=== PATIENT | male | born 1950 | race Caucasian/White ===

== ENCOUNTER 2020-10-17 15:00 | Inpatient (IN) | payer MEDICARE, OTHER, SELFPAY ==
[2020-10-17] VITALS (10 sets, daily range): BP systolic 140–159; BP diastolic 62–84; PULSE 67–83; RESP 15–20; TEMP 36.6–37.2; O2SAT 93–97; BMI 33.1; BMI 33.3; BMI 33.4
--- NOTE | 2020-10-17 15:20 | CT_ITS ---
We are attempting to reach an attending provider to discuss findings. An addendum with communication details will be sent when the communication is complete. STUDY: CT HEAD STROKE PROTOCOL W/O CONTRAST INJECTION REASON FOR EXAM: Male, 69 years old. SUDDEN ONSET OF RT HAND/ARM N/T RADIATION DOSAGE (If Supplied By Facility): CTDIvol = ( ) mGy, DLP = ( ) mGycm TECHNIQUE: Transaxial CT imaging of the brain was performed without administration of intravenous contrast material. Individualized dose optimization techniques were used for this CT. COMPARISON: No relevant priors. FINDINGS: Normal soft tissue structures. Normal calvarium. There is mild cerebral atrophy with widening of the extra-axial spaces and ventricular dilatation. There are areas of decreased attenuation within the white matter tracts of the supratentorial brain, consistent with microvascular disease changes. Normal basal ganglia and thalami. Normal brainstem. Normal cerebellum. There is no intracranial hemorrhage. There are no findings of an acute ischemic infarction. There is a right dense MCA sign (image 21 series 2, image 41 series 601). Normal visualized paranasal sinuses. CT/STROKE Brain/Head without Cont IMPRESSION: 1. No acute intracranial hemorrhage or mass effect. Right dense MCA sign. CTA recommended. Electronically Signed: John Saez MD (Brooks) at 16:11 EST , Service support ,
--- NOTE | 2020-10-17 15:20 | EKG12_ITS ---
Test Reason : NEURO Blood Pressure : / mmHG Vent. Rate : 069 BPM Atrial Rate : 069 BPM P-R Int : 146 ms QRS Dur : 092 ms QT Int : 398 ms P-R-T Axes : 036 016 026 degrees QTc Int : 426 ms Normal sinus rhythm Normal ECG Confirmed by USMAN BALDERAS, JEFF ([id number]), publications editor LANDON SOLIZ ([id number]) on 10/19/2020 8:54:48 AM Referred By: Winnie Vilchis Confirmed By:JEFF MARY MD
--- NOTE | 2020-10-17 15:38 | RAD_ITS ---
STUDY: X-RAY CHEST REASON FOR EXAM: Male, 69 years old. PT DRIVING FROM [place] TO [place] AND WAS ON THE WAY BACK HOME WHEN HE HAD SUDDEN R HAND/ARM NUMBNESS NUMB FACE AND DIFFICULTY SPEAKING. PT ALSO LOST STRENGTH IN R HAND. NO SYMPTOMS NOW TECHNIQUE: AP COMPARISON: None. FINDINGS: EKG leads project over the chest. The lungs are clear and expanded. There is no demonstrated pleural abnormality. Normal size heart. Normal mediastinum and shawnee. Normal visualized pulmonary arteries. There is atherosclerotic calcification of the aortic arch with tortuosity. Normal visualized thoracic spine. Operative changes of the right humeral head. There is no demonstrated abnormality of the visualized soft tissue structures of the upper abdomen. RAD/Chest 1 View IMPRESSION: Nonacute portable x-ray examination of the chest. Electronically Signed: John Saez MD (Brooks) at 15:56 EST , Service support ,
--- NOTE | 2020-10-17 16:32 | CT_ITS ---
STUDY: CTA HEAD AND NECK WITH CONTRAST REASON FOR EXAM: Male, 69 years old. CVA, SUDDEN ONSET OF RT HAND/ARM N/T, NUMB FACE, DIFF SPEAKING, LOST STRENGTH IN RT HAND WHILE DRIVINGSTRENGTH IN RT HAND WHILE DRIVING RADIATION DOSAGE (If Supplied By Facility): CTDIvol = ( 24.28 ) mGy, DLP = ( 730.92 ) mGycm TECHNIQUE: CT angiography was performed with a multi-detector CT scanner. Data acquisition was obtained from the skull base through the vertex following intravenous administration of IV 100mL Isovue-370. MIP images were reconstructed from the axial data set. Post-processing of the angiographic images was performed, with multiplanar reformation and 3D reconstruction. Individualized dose optimization techniques were used for this CT. COMPARISON: No relevant priors. FINDINGS: Normal bilateral petrous carotid arteries. There is calcified plaque formation of the right cavernous carotid artery, without a cross-sectional luminal stenosis. There is calcified plaque formation of the left cavernous carotid artery, without a cross-sectional luminal stenosis. Normal right A1 segments of the anterior cerebral artery. There is non-visualization of the left A1 segment of the anterior cerebral arteries consistent with either aplastic development or an occlusion. Normal intact anterior communicating artery (ACOM). Normal bilateral A2 segments of the anterior cerebral arteries. There is irregularity of the right M1 and M2 branches with mild luminal narrowing, suggesting atherosclerotic plaque formation, without an acute occlusion. Normal left M1 and M2 segments of the middle cerebral arteries, with a normal M1 bifurcation. There is non-visualization of the right posterior communicating artery (PCOM). 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 There is atherosclerosis with narrowing of the left vertebral artery (image 163 series 2). There is a small atretic basilar artery, suggesting a basilar insufficiency. The visualized bilateral superior cerebellar (SCA) arteries are normal. Normal bilateral P1, P2 and visualized P3 segments of the posterior cerebral arteries. There is no demonstrated aneurysm of the wrangell of [place]. There is no demonstrated abnormality of the visualized brain. AORTIC ARCH: There is atherosclerotic calcific plaque formation of the aortic arch and great vessels arising from the aortic arch, without a hemodynamically significant stenosis. RIGHT CAROTID ARTERIES: There is atherosclerotic tortuous elongation of the right common carotid artery. There is mild atherosclerotic plaque formation with minimal narrowing of the right carotid bulb. There is mild atherosclerotic plaque formation of the origin of the right internal carotid artery with 30% stenosis. There is atherosclerotic tortuous elongation of the cervical portion of the right internal carotid artery. There is mild atherosclerotic plaque formation of the origin of the right external carotid artery with less than 50% cross sectional diameter stenosis. LEFT CAROTID ARTERIES: There is atherosclerotic tortuous elongation of the left common carotid artery. There is mild atherosclerotic plaque formation with minimal narrowing of the left carotid bulb. There is mild atherosclerotic plaque formation of the origin of the left internal carotid artery with less than 40% stenosis. There is atherosclerotic tortuous elongation of the cervical portion of the left internal carotid artery. There is mild atherosclerotic plaque formation of the origin of the left external carotid artery with less than 50% cross sectional diameter stenosis. VERTEBRAL ARTERIES: There is enhancement within the bilateral vertebral arteries with a small right vertebral artery, and a dominant left vertebral artery. CT/STROKE CTA Head AND Neck W/Con IMPRESSION: 1. No acute arterial occlusion or intracranial aneurysm. 2. Atherosclerosis of the right M1/M2 without narrowing. 3. Bilateral carotid atherosclerosis: No hemodynamically significant stenosis. 4. No arterial dissection. N.B. : The above information has been verbally conveyed by John Saez MD (Brooks) to Isabela Russell MD, on 10/17/2020 17:27:53 (ET). Electronically Signed: John Saze MD (Brooks) at 17:34 EST , Service support ,
[2020-10-17 16:38] LABS: Absolute Lymphocyte Count 0.82 X10^3/uL (0.83-4.51); Absolute Neutrophil Count 4.2 X10^3/uL (2.0-7.7); Basophil# 0.02 X10^3/uL; Basophil% 0.3 % (0-1); Eosinophil# 0.22 X10^3/uL; Eosinophils% 3.7 % (0-5); Hematocrit 44.4 % (40-54); Hemoglobin 14.9 g/dL (13.0-16.5); Lymphocyte # 0.82 X10^3/ul (4.0); Lymphocyte % 13.8 % (19-41); Mean Corp Hgb Conc 33.6 g/dL (32-36); Mean Corpuscular Hgb 29.7 pg (27.0-32.0); Mean Corpuscular Volume 88.6 fL (80-94); Mean Platelet Vol. 9.9 fl (6.2-12.0); Monocyte# 0.64 X10^3/uL; Monocyte% 10.7 % (0-10); NRBC Flagged by Analyzer 0 % (0-5); Neutrophil # 4.24 X10^3/uL (2.7-7.7); Neutrophil % 71.2 % (47-70); Platelet Count 183 K/mm3 (150-450); RBC Distribution Width CV 12.8 % (11.6-14.6); RBC Distribution Width SD 41.6 fl (35.1-43.9); Red Blood Count 5.01 M/mm3 (4.6-6.2)
[2020-10-17 16:46] LABS: International Normalized Ratio 1.1; Prothrombin Time (Protime)PT. 13.2 SECONDS (11.7-14.9)
[2020-10-17 16:47] LABS: Partial Thromboplast Time 27.8 Seconds (24.1-36.2)
[2020-10-17 16:54] LABS: Anion Gap 7 (5-15); BUN 23 mg/dL (7-18); BUN/Creat Ratio 15.9 RATIO (10-20); Calcium,Total 8.9 mg/dL (8.5-10.1); Chloride 108 mmol/L (98-107); Creatinine, Serum 1.45 mg/dL (0.70-1.30); EST Glomerular Filtration Rate 51 mL/min (>60); Est Glom Filt Rate - Afr Amer 62 mL/min (>60); Estimated Creatinine Clearance 50.49 ml/min; Glucose 93 mg/dL (74-106); Potassium 4.3 mmol/L (3.5-5.1); Sodium Level 141 mmol/L (136-145)
--- NOTE | 2020-10-17 17:17 | ED.VISSUMM ---
- ER Visit Summary Date of Service: 10/17/20 Chief Complaint: Right arm weakness and numbness History of Present Illness: The patient is a 69 M presenting with right arm weakness and numbness. Patient states he was driving and started having weakness and numbness in his right arm. He had numbness in his right face as well. He started having difficulty speaking. This started 40 minutes prior to arrival. He states 10 minutes ago his symptoms completely resolved. Symptoms lasting approximately 30 minutes. No history of similar symptoms in the past. Physical Examination: Vitals are stable. Patient is afebrile. Alert no acute distress. HEENT exam is unremarkable. Neck is supple. Lungs are clear and equal bilaterally. Heart is regular rate and rhythm. Abdomen is soft nontender nondistended. Extremities are unremarkable. Skin is warm and dry. No focal neurologic deficit. NIH 0 Remainder of exam is unremarkable. Emergency Department Course and Treatment: EKG is sinus rhythm rate of 69 with no acute ischemic changes. CBC, chemistries unremarkable other than BUN 23, creatinine 1.45. Troponin is negative. Chest x-ray read by myself and radiology shows no acute process. CT head shows no acute intracranial hemorrhage or mass effect. Right dense MCA sign. CTA recommended. Patient continues to have an NIH of 0. Discussed with [facility] neurology. CTA head shows No acute arterial occlusion or intracranial aneurysm. Atherosclerosis of the right M1/M2 without narrowing. Bilateral carotid atherosclerosis: No hemodynamically significant stenosis. No arterial dissection. Will discuss with hospitalist for admission. Disposition: Admission Impression: TIA This note was generated with [employer] dictation software. It may contain incorrect words, spelling, and punctuation that were not noted in review of the chart prior to signing ED Disposition - Plan for ED Patient: Referrals: AFTAB CRUZ [Other]
--- NOTE | 2020-10-17 19:13 | ECHOCS_ITS ---
Reason For Study: TIA/STROKE Procedure This was a 2D Doppler, Color Flow transthoracic echocardiogram. The study was technically difficult. Contrast injection was performed. Exam performed portable in patient room. Left Ventricle Normal LV size. Left ventricular systolic function is normal. The estimated ejection fraction is 55 %. Stage 1 diastolic dysfunction. No regional wall motion abnormalities noted. Right Ventricle Normal RV size. Normal systolic function. Atria Normal left atrium. Normal right atrium. Mitral Valve Normal mitral valve. Tricuspid Valve Normal tricuspid valve. Aortic Valve The aortic valve is not well visualized. Mild (1+) eccentric aortic valve insufficiency. Pulmonic Valve Normal pulmonic valve. Great Vessels Normal aortic root. The pulmonary artery is normal size. Normal inferior vena cava. Pericardium/Pleural No pericardial effusion. Medication Performed a rapid injection of agitated mix of 9 cc saline and 1cc air to assess for atrial septal defect. Diluted definity 5.0ml given slow IV push to enhance endocardial definition. *Non-diagnostic bubble due to poor image quality. MMode/2D Measurements & Calculations LVIDd: 4.7 cm IVSd: 1.1 cm LVOT diam: 2.0 cm LVIDs: 3.4 cm LVPWd: 1.0 cm RVDd: 3.3 cm FS: 26.9 % LVOT area: 3.3 cm2 Ao root diam: 3.9 cm LAV(MOD-bp): 42.5 ml LA A4 area: 13.9 cm2 LAV(MOD-bp) Indexed: 18.7 ml/m2 LAV(MOD-sp2): 53.9 ml LAV(MOD-sp4): 30.8 ml LA dimension(2D): 4.1 cm RA A4 area: 10.7 cm2 Time Measurements MV dec time: 0.54 sec Doppler Measurements & Calculations MV E max thom: 70.7 cm/sec Lat Peak E' Thom: 8.0 cm/sec Med Peak E' Thom: 4.2 cm/sec MV A max thom: 138.9 cm/sec E/E' lat: 8.8 E/E' med: 16.8 MV E/A: 0.51 MV V2 max: 138.0 cm/sec Ao V2 max: 189.9 cm/sec AI max thom: 467.1 cm/sec MV max P.6 mmHg Ao max P.5 mmHg AI max P.3 mmHg MV V2 mean: 74.8 cm/sec Ao V2 mean: 136.1 cm/sec AI dec slope: 369.9 cm/sec2 MV mean P.6 mmHg Ao mean P.2 mmHg AI P1/2t: 369.8 msec MV V2 VTI: 32.8 cm Ao V2 VTI: 33.3 cm MVA(VTI): 2.2 cm2 SUBHASH(I,D): 2.1 cm2 SUBHASH(V,D): 2.0 cm2 LV V1 max: 113.4 cm/sec SV(LVOT): 70.9 ml PA V2 max: 87.5 cm/sec LV V1 max P.2 mmHg LV V1 mean P.5 mmHg LV V1 mean: 73.9 cm/sec LV V1 VTI: 21.7 cm MV P1/2t-pr_phl: 111.3 msec Interpretation Summary Normal LV size. Left ventricular systolic function is normal. The estimated ejection fraction is 55 %. Stage 1 diastolic dysfunction. Ordering Physician: Winnie Vilchis Referring Physician: Winnie Vilchis Performed By: Celine Patino RDCS, RVT
--- NOTE | 2020-10-17 19:14 | PCM.HP.STD ---
Problem List (1) TIA (transient ischemic attack) Status: Acute (2) MYRA (acute kidney injury) Status: Acute (3) HTN (hypertension) Status: Chronic (4) Hyperlipidemia Status: Chronic (5) Obesity (BMI 30.0-34.9) Status: Chronic History of Present Illness Date of Admission: 10/17/20 Mr. Melgoza is a 69 year old M with a H MH of hypertension, hyperlipidemia, and obesity presented to the emergency department at [facility] on 10/17/2020 with a chief complaint of right upper extremity weakness and numbness and inability to speak. 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 He states that he understood what she was asking but was unable to answer. This episode lasted approximately 15 minutes and had resolved prior to coming to the emergency department and the patient remains symptom-free at this time. He does state he has a family history of stroke and coronary disease but no personal history. His vital signs in the emergency department show only some mild hypertension and are otherwise stable. His CBC is overall unremarkable. His BMP shows possibly mild dehydration with an elevated chloride at 108, BUN of 23, and a serum creatinine of 1.45. His baseline creatinine is unknown. His troponin is negative. A CT was done on initial exam in the emergency department, and was suggestive of a dense right MCA sign and a CTA was recommended and performed. CTA showed no acute arterial occlusion or intracranial aneurysm it did show atherosclerosis of the right M1 M2 without narrowing and bilateral insignificant carotid atherosclerosis. Emergency department attending discussed the case with [facility] neurology stroke service and they recommended admission for TIA work-up. The patient will be admitted to PCU for further stroke work-up. Past Medical History Past Medical History (Chronic Problems): Chronic Problems HTN (hypertension) (Chronic) Hyperlipidemia (Chronic) Obesity (BMI 30.0-34.9) (Chronic) Allergies No Known Allergies Allergy (Verified 10/17/20 15:04) Home Medications: Ambulatory Orders Medication Instructions Recorded Aspirin [Aspirin, Baby] 81 mg PO DAILY@0800 10/17/20 Cholecalciferol (VIT D3) [Vitamin 1,000 unit PO DAILY 10/17/20 D] Cyanocobalamin (Vitamin B-12) 1,000 mcg PO DAILY 10/17/20 [Vitamin B-12] Ezetimibe [Zetia] 10 mg PO WE 10/17/20 Losartan Potassium [Cozaar] 100 mg PO DAILY 10/17/20 Metoprolol(XL)Succ [Toprol Xl 100 mg PO DAILY 10/17/20 (Beta Javid)] Rosuvastatin Calcium [Crestor] 5 mg PO QODAY 10/17/20 Surgical History: noncontributory Psychiatric History: No pertinent psych hx Lives: Spouse/ Significant Other Smoking Status: Former smoker Alcohol: Rare Drugs: None - *Family History Maternal History Items: Heart Disease, Hypertension Paternal History Items: Heart Disease Offspring History Items: No pertinent history Sibling History Items: High Cholesterol, Heart Disease, Hypertension, Stroke Review of Systems Constitutional: Denies: Anorexia, Chills, Fever, Night Sweats, Malaise, Weakness, Weight Change, Fatigue Eyes: Denies: Blurred vision, Conjunctivae Inflammation, Double vision, Drainage, Eyelid Inflammation, Pain, Redness, Vision Change HEENT: Reports: Difficulty Hearing. Denies: Difficulty Swallowing, Head Aches, Nasal bleeding, Nasal Congestion, Post Nasal Drip, Sinus Congestion, Sinus Drainage, Sore Throat, Visual Changes Cardiovascular: Denies: Chest Pain, Claudication, Chest Pressure, Chest Tightness, Edema, Heaviness, Light Headedness, Orthopnea, Palpitations, Paroxysmal Noc. Dyspnea, Syncope Respiratory: Denies: Cough, Hemoptysis, Pleuritic Pain, Shortness of Breath, Shortness of breath at rest, Shortness of breath upon exertion, Sputum production, Wheezing Gastrointestinal: Denies: Abdominal Pain, Constipation, Diarrhea, Dyspepsia, Hematemesis, Hematochezia, Nausea, Melena, Vomiting Genitourinary: Reports: Hesitancy, Nocturia. Denies: Dysuria, Frequency, Hematuria, Incontinence, Retention, Urgency Musculoskeletal: Denies: Back Pain, Joint Pain, Joint stiffness, Joint swelling, Joint Tenderness, Muscle pain, Neck Pain Skin: Denies: Dryness, Jaundice, Lesions, Pruritis, Rash, Skin Changes, Wounds Neurological: Reports: Change in Speech - Now resolved, Slurred speech - Now resolved, Focal weakness - Now resolved, Numbness - Now resolved, Tingling - Now resolved. Denies: Balance problems, Double vision, Confusion, Difficulty swallowing, Headaches, Incoordination, Tremor, Seizures Psychiatric: Denies: Anxiety, Depression Endocrine: Denies: Change in Body Habitus, Heat/ Cold Intolerance, Polydipsia, Polyuria Hematologic/ Lymphatic: Denies: Adenopathy, Anemia, Easy Bruising, Easy Bleeding, Petechiae, Purpura VTE Information - Inpt Only VTE Present on Admission: No VTE Mechan Device Prophylaxis: None VTE Pharm Prophylaxis ordered?: Yes - Physical Exam Vitals/I&O's: Vital Signs Temp Pulse Resp BP Pulse Ox 97.9 F 67 18 147/80 H 97 10/17/20 18:58 10/17/20 18:58 10/17/20 18:58 10/17/20 18:58 10/17/20 18:58 Oxygen Delivery Method Room Air Weight: 108.5 kg Body Mass Index (BMI) 33.3 Finger Stick Blood Glucose 120 General: Alert, Oriented x3, Cooperative, No apparent distress, Well developed, Well nourished, - - Older obese white male, sitting up in bed appears comfortable nontoxic, at bedside HEENT: Atraumatic, PERRLA, EOMI, Normocephalic, EAC Clear, - - She is hard of hearing Oral: Moist Mucosa, No Gingival or Mucosal Lesions/ Ulcerations Neck: Supple, No JVD, Negative Carotid Bruits, Negative Hepatojugular Reflux, No Nodes, No Nuchal Rigidity, Trachea Midline, Thyroid Normal Size and Texture Lungs: Clear to auscultation, Normal air movement, No rhonchi, No wheeze, No rales Cardiovascular: Regular rate, Regular Rhythm, Normal S1, Normal S2, No murmurs, No Ectopic Activity, No rub noted, No Gallop Abdomen: Bowel Sounds Present, Soft, Non Tender, Non-Distended, No Hepato-splenomegaly, Obese Extremities: No clubbing, No cyanosis, No edema, Capillary Refill Less than 3 Seconds, Peripheral Pulses Normal Skin: No rashes, No breakdown Musculoskeletal: No Tenderness to Palpation of Joints or Extremities, No Muscle Wasting, Arthritic Changes Lymphatic: No Cervical, Supraclavicular, or Inguinal Adenopathy Neurological: Cranial nerves II-XII grossly intact, Deep Tendon Reflexes 2+/4 and Symmetrical, Neuro grossly intact, Motor Exam 5/5 strength throughout, Muscle tone normal, Sensory exam intact to light touch and pain, Coordination normal Microbiology Past 72 Hours 10/17/20 16:24 Mucosa - Nose SARS-CoV-2 Antigen (Rapid) - Final Laboratory Results 10/17/20 16:16: WBC 6.0, RBC 5.01, Hgb 14.9, Hct 44.4, MCV 88.6, MCH 29.7, MCHC 33.6, RDW Std Deviation 41.6, RDW Coeff of Manny 12.8, Plt Count 183, MPV 9.9, Immature Gran % (Auto) 0.300, Neut % (Auto) 71.2 H, Lymph % (Auto) 13.8 L, [place] % (Auto) 10.7 H, Eos % (Auto) 3.7, Baso % (Auto) 0.3, Absolute Neuts (auto) 4.2, Absolute Lymphs (auto) 0.82 L, Nucleated RBC % 0 10/17/20 16:16: PT 13.2, INR 1.1, APTT 27.8 10/17/20 16:16: Sodium 141, Potassium 4.3, Chloride 108 H, Carbon Dioxide 26.0, Anion Gap 7, BUN 23 H, Creatinine 1.45 H, Estim Creat Clear Calc 50.49, Est GFR (MDRD) Af Amer 62, Est GFR (MDRD) Non-Af 51 L, BUN/Creatinine Ratio 15.9, Glucose 93, Calcium 8.9, Troponin I < 0.015 Assessment/Plan All Active Problems TIA (transient ischemic attack) (Acute) MYRA (acute kidney injury) (Acute) Suspected TIA -CT head showed no acute hemorrhage but a dense right MCA sign so CTA was performed -CTA showed no acute arterial occlusions or intracranial aneurysms, atherosclerosis of the right M1 M2 without narrowing, bilateral carotid atherosclerosis without hemodynamic significant stenosis, and no dissection -Patient is on aspirin at baseline we will continue -Continue home Zetia -Lipitor 80 mg daily -Continue home blood pressure medication of losartan and metoprolol -Cholesterol panel in a.m. -Check echo -MRI in a.m. -PT and OT -Monitor on telemetry ?MYRA versus CKD -Serum creatinine is 1.45 on admission -Creatinine is unknown -We will hydrate since CTA was performed -Repeat BMP in a.m. Hypertension -Continue home metoprolol 100 mg daily -Continue home losartan 100 mg daily -PRN available -Monitor Hyperlipidemia -Lipitor 80 mg nightly -Continue home Zetia -Cholesterol panel in a.m. Vitamin D deficiency -Continue home vitamin D supplementation Obesity -BMI 33.4 -Recommend weight loss Remote history of tobacco abuse -Quit smoking in the early DVT prophylaxis -Lovenox CODE STATUS -Full Inpatient E&M: 61872 Init Hosp L3
--- NOTE | 2020-10-17 19:32 | EKG12_ITS ---
Test Reason : CP Blood Pressure : / mmHG Vent. Rate : 062 BPM Atrial Rate : 062 BPM P-R Int : 150 ms QRS Dur : 094 ms QT Int : 394 ms P-R-T Axes : 039 012 027 degrees QTc Int : 399 ms Normal sinus rhythm Normal ECG No previous ECGs available Confirmed by USMAN BALDERAS, JEFF ([id number]), editor at large LANDON SOLIZ ([id number]) on 10/19/2020 9:08:18 AM Referred By: Winnie Vilchis Confirmed By:JEFF MARY MD
[2020-10-17] MEDS: 0.9% Normal Saline 1,000 ML 70 ML IV (19:43)
[2020-10-17] MEDS: Atorvastatin Calcium 80 MG Tablet PO (21:23)
[2020-10-17] MEDS: Famotidine 20 MG Tablet PO (21:23)
[2020-10-18] VITALS (13 sets, daily range): BP systolic 122–163; BP diastolic 70–86; PULSE 74–93; RESP 16–79; TEMP 36.6–37.5; O2SAT 92–96
[2020-10-18 05:34] LABS: Absolute Lymphocyte Count 0.66 X10^3/uL (0.83-4.51); Absolute Neutrophil Count 3.3 X10^3/uL (2.0-7.7); Basophil# 0.02 X10^3/uL; Basophil% 0.4 % (0-1); Eosinophil# 0.16 X10^3/uL; Eosinophils% 3.4 % (0-5); Hematocrit 40.5 % (40-54); Hemoglobin 13.5 g/dL (13.0-16.5); Lymphocyte # 0.66 X10^3/ul (4.0); Lymphocyte % 14.1 % (19-41); Mean Corp Hgb Conc 33.3 g/dL (32-36); Mean Corpuscular Hgb 29.7 pg (27.0-32.0); Mean Platelet Vol. 9.8 fl (6.2-12.0); Monocyte# 0.57 X10^3/uL; Monocyte% 12.2 % (0-10); NRBC Flagged by Analyzer 0 % (0-5); Neutrophil # 3.26 X10^3/uL (2.7-7.7); Neutrophil % 69.7 % (47-70); Platelet Count 153 K/mm3 (150-450); RBC Distribution Width CV 12.8 % (11.6-14.6); RBC Distribution Width SD 41.7 fl (35.1-43.9); Red Blood Count 4.55 M/mm3 (4.6-6.2); White Blood Count 4.7 K/mm3 (4.4-11.0)
--- NOTE | 2020-10-18 05:51 | PCS.PANDOC ---
PANDEMIC DOCUMENTATION INITIATED: Date: 10/17/20 Time: 1851
[2020-10-18 05:57] LABS: ALB/GLOB Ratio 1.1 RATIO (0.9-2.4); AST(SGOT) 27 U/L (15-37); Alanine Aminotransfer ALT/SGPT 34 U/L (16-61); Albumin, Serum 3.3 g/dL (3.2-5.0); Alkaline Phosphatase 81 U/L (45-117); Anion Gap 6 (5-15); BUN 20 mg/dL (7-18); BUN/Creat Ratio 15.9 RATIO (10-20); Calcium,Total 8.3 mg/dL (8.5-10.1); Chloride 109 mmol/L (98-107); Cholesterol 130 mg/dL (200); Creatinine, Serum 1.26 mg/dL (0.70-1.30); EST Glomerular Filtration Rate 60 mL/min (>60); Est Glom Filt Rate - Afr Amer 73 mL/min (>60); Globulin 3.1 g/dL (2.2-4.2); Glucose 99 mg/dL (74-106); High Density Lipoprotein 42 mg/dL; Magnesium 2.1 mg/dL (1.6-2.6); Phosphorus 3.3 mg/dL (2.5-4.9); Potassium 4.3 mmol/L (3.5-5.1); Protein, Total 6.4 g/dL (6.4-8.2); Sodium Level 138 mmol/L (136-145); Triglycerides 102 mg/dL; Very Low Density Lipoprotein 20 mg/dL (5-40)
--- NOTE | 2020-10-18 09:00 | MRI_ITS ---
STUDY: MRI BRAIN WITH AND WITHOUT CONTRAST REASON FOR EXAM: Male, 69 years old. RUE weakness, numbness, speech difficulty TECHNIQUE: Standardized multiplanar fat and water weighted pulse sequences were obtained. IV Dotarem 20ml was administered for the contrast portion of the examination. There is motion artifact. COMPARISON: CT October 17, 2020 FINDINGS: Normal size of the ventricles and extra-axial spaces for the patient''s age. There are multiple white matter hyperintensities, distributed throughout the deep white matter tracts of the cerebral hemispheres, consistent with moderate chronic white matter ischemic changes. There is a right parietal gliosis extending to the cortex. There is no evidence for recent intracranial ischemia or other cause of cytotoxic edema on diffusion weighted imaging (DWI). Normal T2* images of the brain without demonstrated susceptibility artifact. There is no demonstrated hemosiderin stain. Normal bilateral basal ganglia. Normal thalami. There is no extra-axial fluid accumulation. Normal flow voids within the major intracranial circulation suggesting patency by spin echo criteria. Normal venous enhancement. There is no enhancing intra-axial or extra-axial abnormality. Normal sella turcica, pituitary gland, infundibular stalk, optic chiasm and hypothalamus. Normal tectal plate and pineal gland. Normal midbrain, emily and medulla. Normal cerebellum. Normal basal cisterns. Normal bilateral temporal bones. Normal bilateral internal auditory canals. There are bilateral ocular lens implants with otherwise normal intraorbital contents. Normal visualized paranasal sinuses. Normal calvarium and skull base. Normal visualized soft tissue structures. Normal visualized upper cervical spine. MRI/Brain W/WO Contrast IMPRESSION: Involutional changes of the brain, as described above. Electronically Signed: Jean Abraham MD at 19:33 EST , Service support ,
[2020-10-18] MEDS: 0.9% Saline Lock 10 ML Syringe IV ×2 (10:27→15:27)
[2020-10-18] MEDS: Aspirin 81 MG TAB.CHEW PO (10:27)
[2020-10-18] MEDS: Metoprolol(XL)Succ 100 MG Tablet PO (10:27)
[2020-10-18] MEDS: Enoxaparin 40 MG/0.4 ML Syringe SC (10:27)
[2020-10-18] MEDS: Losartan Potassium 100 MG Tablet PO (10:27)
[2020-10-18] MEDS: Famotidine 20 MG Tablet PO (11:29)
--- NOTE | 2020-10-18 12:12 | CASEMGMT ---
SW completed PHQ-9 w/pt, pt scored a 0, no indication of depression. VIC Oliver
[2020-10-18] MEDS: LORazepam 2 MG/ML Syringe 1 MG IV (15:26)
--- NOTE | 2020-10-18 16:45 | PCM.PN.HOSP ---
Patient Problems: Active and Suspected Problems TIA (transient ischemic attack) (Acute) MYRA (acute kidney injury) (Acute) Subjective: Patient seen and examined. He was admitted with a complaint of right upper extremity weakness and numbness and inability to speak. Symptoms resolved after about 15 minutes and had not recurred since. CT of the brain done was suggestive of a dense right MCA and CTA showed no acute arterial occlusion on intracranial aneurysm. He has been managed for TIA. Patient had no complaints this morning. His symptoms had not recurred since admission. Review systems otherwise negative. He is awaiting MRI and 2D echo today. Labs and vitals reviewed. Vitals/I&O's: Vital Signs Temp Pulse Resp BP Pulse Ox 98.4 F 80 16 153/75 H 94 10/18/20 14:30 10/18/20 16:18 10/18/20 16:18 10/18/20 16:18 10/18/20 16:18 Oxygen Delivery Method Room Air Weight: 239 lb 3.225 oz Body Mass Index (BMI) 33.3 Finger Stick Blood Glucose 120 Intake and Output for Last 24 Hours 10/16/20 10/17/20 10/18/20 23:59 23:59 23:59 Intake Total 1820 / 1820 Balance 1820 / 1820 General: Alert, Oriented x3, Cooperative, No apparent distress HEENT: Atraumatic, PERRLA, EOMI, Normocephalic Oral: Dry Mucosa Neck: Supple, No JVD, Negative Carotid Bruits Lungs: Clear to auscultation, Normal air movement, No rhonchi, No wheeze, No rales Cardiovascular: Regular rate, Regular Rhythm, Normal S1, Normal S2, No murmurs Abdomen: Bowel Sounds Present, Soft, Non Tender, Non-Distended, No Hepato-splenomegaly Extremities: No clubbing, No cyanosis, No edema, Capillary Refill Less than 3 Seconds Skin: No rashes, No breakdown Musculoskeletal: No Tenderness to Palpation of Joints or Extremities Lymphatic: No Cervical, Supraclavicular, or Inguinal Adenopathy Neurological: Cranial nerves II-XII grossly intact, Deep Tendon Reflexes 2+/4 and Symmetrical, Neuro grossly intact, Motor Exam 5/5 strength throughout, Muscle tone normal, Sensory exam intact to light touch and pain Psych/Mental Status: Normal Affect, Appropriate, Alert and oriented to time, place, person, mood and affect Microbiology Past 72 Hours 10/17/20 16:24 Mucosa - Nose SARS-CoV-2 Antigen (Rapid) - Final Laboratory Results 10/17/20 16:16: PT 13.2, INR 1.1, APTT 27.8 10/17/20 16:16: Sodium 141, Potassium 4.3, Chloride 108 H, Carbon Dioxide 26.0, Anion Gap 7, BUN 23 H, Creatinine 1.45 H, Estim Creat Clear Calc 50.49, Est GFR (MDRD) Af Amer 62, Est GFR (MDRD) Non-Af 51 L, BUN/Creatinine Ratio 15.9, Glucose 93, Calcium 8.9, Troponin I < 0.015 10/17/20 20:34: Troponin I < 0.015 10/18/20 05:12: WBC 4.7, RBC 4.55 L, Hgb 13.5, Hct 40.5, MCV 89.0, MCH 29.7, MCHC 33.3, RDW Std Deviation 41.7, RDW Coeff of Manny 12.8, Plt Count 153, MPV 9.8, Immature Gran % (Auto) 0.200, Neut % (Auto) 69.7, Lymph % (Auto) 14.1 L, [place] % (Auto) 12.2 H, Eos % (Auto) 3.4, Baso % (Auto) 0.4, Absolute Neuts (auto) 3.3, Absolute Lymphs (auto) 0.66 L, Nucleated RBC % 0 10/18/20 05:12: Sodium 138, Potassium 4.3, Chloride 109 H, Carbon Dioxide 23.0, Anion Gap 6, BUN 20 H, Creatinine 1.26, Estim Creat Clear Calc 58.10, Est GFR (MDRD) Af Amer 73, Est GFR (MDRD) Non-Af 60, BUN/Creatinine Ratio 15.9, Glucose 99, Calcium 8.3 L, Phosphorus 3.3, Magnesium 2.1, Total Bilirubin 1.10 H, AST 27, ALT 34, Alkaline Phosphatase 81, Total Protein 6.4, Albumin 3.3, Globulin 3.1, Albumin/Globulin Ratio 1.1, Triglycerides 102, Cholesterol 130, LDL Cholesterol 68, VLDL Cholesterol 20, HDL Cholesterol [address] 10/17/20 15:20 IMPRESSION: 1. No acute intracranial hemorrhage or mass effect. Right dense MCA sign. CTA recommended. Electronically Signed: John Saez MD (Brooks) at 16:11 EST , Service support , ADDENDUM: 10/17/20 1622 IMPRESSION: 1. No acute intracranial hemorrhage or mass effect. Right dense MCA sign. CTA recommended. N.B. : The above information has been verbally conveyed by John Saez MD (Brooks) to Isabela Russell MD, on 10/17/2020 16:15:13 (ET). Electronically Signed: John Saez MD (Brooks) at 16:11 EST , Service support , Chest X-Ray 10/17/20 15:38 IMPRESSION: Nonacute portable x-ray examination of the chest. Electronically Signed: John Saez MD (Brooks) at 15:56 EST , Service support , Head/Neck CTA 10/17/20 16:32 IMPRESSION: 1. No acute arterial occlusion or intracranial aneurysm. 2. Atherosclerosis of the right M1/M2 without narrowing. 3. Bilateral carotid atherosclerosis: No hemodynamically significant stenosis. 4. No arterial dissection. N.B. : The above information has been verbally conveyed by John Saez MD (Brooks) to Isabela Russell MD, on 10/17/2020 17:27:53 (ET). Electronically Signed: John Saez MD (Brooks) at 17:34 EST , Service support , ADDENDUM: 10/17/20 1741 IMPRESSION: 1. No acute arterial occlusion or intracranial aneurysm. 2. Atherosclerosis of the right M1/M2 without narrowing. 3. Bilateral carotid atherosclerosis: No hemodynamically significant stenosis. 4. No arterial dissection. N.B. : The above information has been verbally conveyed by John Saez MD (Brooks) to Isabela Russell MD, on 10/17/2020 17:27:53 (ET). Electronically Signed: John Saez MD (Brooks) at 17:34 EST , Service support , Current Medications Acetaminophen (Acetaminophen 325 Mg Tablet) 650 mg PO Q4H PRN PRN PRN Reason: Headache/Temp>99.6F Acetaminophen (Acetaminophen 650 Mg Suppository) 650 mg RECTAL Q4H PRN PRN PRN Reason: Headache/Temp>99F Acetaminophen (Acetaminophen 650 Mg/20 Ml Udc) 650 mg NG Q4H PRN PRN PRN Reason: Headache/Temp>99F Al Hydroxide/Mg Hydroxide (Mag Hydrox/Al Hydrox/Simeth 30 Ml Udc) 30 ml PO Q6H PRN PRN PRN Reason: Gastric Burning Albuterol Sulfate (Albuterol 2.5 Mg/3 Ml Vial.Neb.) 2.5 mg INHALATION Q2H PRN PRN PRN Reason: SOB/Wheezing Aspirin (Aspirin 81 Mg Tab.Chew) 81 mg PO DAILY@0800 [facility] Last Admin: 10/18/20 10:27 Dose: 81 mg Documented by: Atorvastatin Calcium (Atorvastatin Calcium 80 Mg Tablet) 80 mg PO QHS [facility] Last Admin: 10/17/20 21:23 Dose: 80 mg Documented by: Cholecalciferol (Cholecalciferol (Vit D3) 1,000 Unit (25mcg)) 1,000 unit PO DAILY [facility] Last Admin: 10/18/20 10:27 Dose: 1,000 unit Documented by: Docusate Sodium (Docusate Sodium 100 Mg Capsule) 100 mg PO BID PRN PRN PRN Reason: Constipation Ezetimibe (Ezetimibe 10 Mg Tablet) 10 mg PO [facility] Enoxaparin Sodium (Enoxaparin 40 Mg/0.4 Ml Syringe) 40 mg SC DAILY [facility] Last Admin: 10/18/20 10:27 Dose: 40 mg Documented by: Famotidine (Famotidine 20 Mg Tablet) 20 mg PO BID [facility] Last Admin: 10/18/20 11:29 Dose: 20 mg Documented by: Hydralazine HCl (Hydralazine 20 Mg/Ml Vial) 5 mg IV Q30M PRN PRN Reason: to maintain BP goals Labetalol HCl (Labetalol (Prefilled) 20 Mg/4 Ml) 10 - 20 mg IV Q10M PRN PRN PRN Reason: to Maintain BP Goals Losartan Potassium (Losartan Potassium 100 Mg Tablet) 100 mg PO DAILY [facility] Last Admin: 10/18/20 10:27 Dose: 100 mg Documented by: Melatonin (Melatonin 3 Mg Tablet) 3 mg PO QHS PRN PRN PRN Reason: INSOMNIA Metoprolol Succinate (Metoprolol(Xl)Succ 100 Mg Tablet) 100 mg PO DAILY [facility] Last Admin: 10/18/20 10:27 Dose: 100 mg Documented by: Ondansetron HCl (Ondansetron 4 Mg/2 Ml Vial) 4 mg IV Q8H PRN PRN PRN Reason: NAUSEA/VOMITING STROKE Vital Signs/Narrative: Vital Signs Temp Pulse Resp BP Pulse Ox 10/18/20 16:18 80 16 153/75 H 94 10/18/20 16:03 80 16 156/76 H 94 10/18/20 15:48 81 79 H 160/84 H 10/18/20 15:00 93 10/18/20 14:30 98.4 F 92 18 160/73 H 96 Medical Necessity - Tobacco Use Smoking Status: Former smoker Assessment/Plan All Active Problems TIA (transient ischemic attack) (Acute) MYRA (acute kidney injury) (Acute) #TIA CT showed no evidence of acute hemorrhage or infarct but showed a dense right MCA sign CTA of the head and neck showed no acute arterial occlusions or intracranial aneurysm and showed atherosclerosis of the right M1 and M2 without narrowing and bilateral carotid atherosclerosis without hemodynamic quality significant stenosis On aspirin and Lipitor. Also on Zetia. 2D echo done today showed EF of 55% with stage I diastolic dysfunction and no regional wall motion abnormalities noted and stage I diastolic dysfunction. Brain MRI done, reading pending. PT OT on board. Fall precautions. #MYRA: Resolved. Creatinine is down from 1.45-1.26. #hypertension: On metoprolol and losartan. IV hydralazine as needed.Goal is for BP <130/80 #Hyperlipidemia: On Lipitor 80 mg nightly and Zetia #Vitamin D deficiency: On vitamin D supplementation DVT prophylaxis: Lovenox Inpatient E&M: 86497 Subs Hosp L2
--- NOTE | 2020-10-18 16:50 | TELEMED_ITS ---
[facility] has confirmed receipt of a request for visit. This document confirms receipt of the order initiating the consult. To find the results of the consultation, please view the patient's reports for the scanned Telemed Consult.
--- NOTE | 2020-10-18 18:13 | PCM.DC ---
- Discharge Diagnoses Current Active Problems: Current Active and Chronic Problems TIA (transient ischemic attack) (Acute) MYRA (acute kidney injury) (Acute) HTN (hypertension) (Chronic) Hyperlipidemia (Chronic) Obesity (BMI 30.0-34.9) (Chronic) You will use the following diet at home:: Cardiac Your food should be the consistency of: Regular Your liquids should be the consistency of: Regular/Thin Discharge Activity: Return to Normal Activity Weight Bearing Status: Weight bearing as tolerated Call your doctor if you observe: Numbness or Tingling, Dizziness Instructions: ED TIA: Transient Ischemic Attack Additional Instructions: to be referred to neurologist by PCP to take aspirin and plavix for 21 days, then to continue with only aspirin indefinitely. to have event recorder for 30 days, results of which are to be sent to his PCP and live truck operator recommended by PCP for interpretation Allergies/Adverse Reactions: Allergies No Known Allergies Allergy (Verified 10/17/20 15:04) Medications to take at Discharge Aspirin [Aspirin, Baby] 81 mg PO DAILY@0800 10/17/20 Cholecalciferol (VIT D3) [Vitamin D3] 1,000 unit PO DAILY 10/17/20 Cyanocobalamin (Vitamin B-12) [Vitamin B-12] 1,000 mcg PO DAILY 10/17/20 Ezetimibe [Zetia] 10 mg PO WE 10/17/20 Losartan Potassium [Cozaar] 100 mg PO DAILY 10/17/20 Metoprolol(XL)Succ [Toprol Xl (Beta Javid)] 100 mg PO DAILY 10/17/20 Atorvastatin Calcium [Lipitor] 80 mg PO QHS #30 tab 10/18/20 Clopidogrel Bisulfate [Clopidogrel] 75 mg PO DAILY #21 tab 10/18/20 The following prescriptions were given: Clopidogrel Bisulfate [Clopidogrel] 75 mg PO DAILY #21 tab Atorvastatin Calcium [Lipitor] 80 mg PO QHS #30 tab Orders to be completed after discharge: 30-Day Event Recorder [[facility]] Location: None Selected Primary Care Physician: AFTAB CRUZ [Other] Please follow up with your Primary Care Physician in: 2-3 weeks Test Results: Test results from this visit will be discussed in further detail at your follow-up appointment, if applicable. Proposed Discharge Date: 10/18/20
--- NOTE | 2020-10-18 18:18 | PCM.DC.SUM ---
Discharge Date and Diagnosis - Problem List Patient Problems: Active and Suspected Problems TIA (transient ischemic attack) (Acute) MYRA (acute kidney injury) (Acute) Date of Admission: 10/17/20 Date of Discharge: 10/19/20 - Primary Discharge Diagnosis Acute Problems: Active Problems TIA (transient ischemic attack) (Acute) MYRA (acute kidney injury) (Acute) - Secondary Discharge Diagnosis Chronic Problems: Chronic Problems HTN (hypertension) (Chronic) Hyperlipidemia (Chronic) Obesity (BMI 30.0-34.9) (Chronic) Hospital Course and Treatment Imaging Results: Diagnostic Data Brain CT 10/17/20 15:20 IMPRESSION: 1. No acute intracranial hemorrhage or mass effect. Right dense MCA sign. CTA recommended. Electronically Signed: John Saez MD (Brooks) at 16:11 EST , Service support , ADDENDUM: 10/17/20 1622 IMPRESSION: 1. No acute intracranial hemorrhage or mass effect. Right dense MCA sign. CTA recommended. N.B. : The above information has been verbally conveyed by John Saez MD (Brooks) to Isabela Russell MD, on 10/17/2020 16:15:13 (ET). Electronically Signed: John Saez MD (Brooks) at 16:11 EST , Service support , Chest X-Ray 10/17/20 15:38 IMPRESSION: Nonacute portable x-ray examination of the chest. Electronically Signed: John Saez MD (Brooks) at 15:56 EST , Service support , Head/Neck CTA 10/17/20 16:32 IMPRESSION: 1. No acute arterial occlusion or intracranial aneurysm. 2. Atherosclerosis of the right M1/M2 without narrowing. 3. Bilateral carotid atherosclerosis: No hemodynamically significant stenosis. 4. No arterial dissection. N.B. : The above information has been verbally conveyed by John Saez MD (Brooks) to Isabela Russell MD, on 10/17/2020 17:27:53 (ET). Electronically Signed: John Saez MD (Brooks) at 17:34 EST , Service support , ADDENDUM: 10/17/20 1741 IMPRESSION: 1. No acute arterial occlusion or intracranial aneurysm. 2. Atherosclerosis of the right M1/M2 without narrowing. 3. Bilateral carotid atherosclerosis: No hemodynamically significant stenosis. 4. No arterial dissection. N.B. : The above information has been verbally conveyed by John Saez MD (Brooks) to Isabela Russell MD, on 10/17/2020 17:27:53 (ET). Electronically Signed: John Saez MD (Brooks) at 17:34 EST , Service support , Brain MRI 10/18/20 09:00 IMPRESSION: Involutional changes of the brain, as described above. Electronically Signed: Jean Abraham MD at 19:33 EST , Service support , neurology- [facility] Operations: None Procedures: 2-D Echocardiogram Summary of Care Provided: The patient is a 69 year old M with a past medical history of hypertension, hyperlipidemia and obesity was admitted through the ED on 10/17/2020 with a complaint of right upper extremity weakness and numbness as well as inability to speak. 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 Symptoms started acutely and said he understood what his was asking but could not answer her. Symptoms lasted approximately 15 minutes and not fully resolved by the time he came to the ED. He admitted to family history of stroke and coronary artery disease. Initial CT of the brain done was suggestive of a dense right MCA sign and a CTA of the head and neck showed no acute arterial occlusion or intracranial aneurysm but did show atherosclerosis of the right M1 and M2 without narrowing and bilateral insignificant carotid atherosclerosis. [facility] was consulted and they recommended TIA work-up and admission. Patient was admitted to be managed for TIA. 2D echo done showed EF of 55% with stage I diastolic dysfunction and no regional wall motion abnormalities. He was started on aspirin and high intensity statin. His metoprolol and losartan were also continued. MRI of the brain done showed only chronic involutional changes of the brain but did not show any evidence of acute ischemic infarct or hemorrhage. [facility] neurolog[facility] was consulted and recommended a 30-day event monitor as well as patient being discharged on aspirin 81 mg daily. Was also to be discharged on a 3-week course of Plavix to be taken in addition to the aspirin and after 3 weeks to continue with aspirin only. Patient also counseled to follow-up with his PCP to recommend him to a neurologist local to where he lives and to also have bilateral carotid ultrasound to assess the carotids. He was discharged home on 10/19/2020 and is to follow-up with his PCP. Patient seen and examined prior to discharge. He had no complaints. Symptoms had not recurred again. Review of systems otherwise negative. Labs and vitals reviewed. Medication reviewed and reconciled. O/E: Vital Signs Temp Pulse Resp BP Pulse Ox 98.5 F 84 18 143/70 H 96 10/18/20 18:30 10/18/20 18:30 10/18/20 18:30 10/18/20 18:30 10/18/20 18:30 [] General: Alert, Oriented x3, Cooperative, No apparent distress HEENT: Atraumatic, PERRLA, EOMI, Normocephalic Oral: Dry Mucosa Neck: Supple, No JVD, Negative Carotid Bruits Lungs: Clear to auscultation, Normal air movement, No rhonchi, No wheeze, No rales Cardiovascular: Regular rate, Regular Rhythm, Normal S1, Normal S2, No murmurs Abdomen: Bowel Sounds Present, Soft, Non Tender, Non-Distended, No Hepato-splenomegaly Extremities: No clubbing, No cyanosis, No edema, Capillary Refill Less than 3 Seconds Skin: No rashes, No breakdown Musculoskeletal: No Tenderness to Palpation of Joints or Extremities Lymphatic: No Cervical, Supraclavicular, or Inguinal Adenopathy Neurological: Cranial nerves II-XII grossly intact, Deep Tendon Reflexes 2+/4 and Symmetrical, Neuro grossly intact, Motor Exam 5/5 strength throughout, Muscle tone normal, Sensory exam intact to light touch and pain Psych/Mental Status: Normal Affect, Appropriate, Alert and oriented to time, place, person, mood and affect Plan is for discharge home today as above. Patient Problems: Active and Suspected Problems TIA (transient ischemic attack) (Acute) MYRA (acute kidney injury) (Acute) - Physical Exam Vitals/I&O's: Vital Signs Temp Pulse Resp BP Pulse Ox 98.4 F 80 16 153/75 H 94 10/18/20 14:30 10/18/20 16:18 10/18/20 16:18 10/18/20 16:18 10/18/20 16:18 Oxygen Delivery Method Room Air Weight: 239 lb 3.225 oz Body Mass Index (BMI) 33.3 Finger Stick Blood Glucose 120 Intake and Output for Last 24 Hours 10/16/20 10/17/20 10/18/20 23:59 23:59 23:59 Intake Total 2180 / 2180 Balance 2180 / 2180 Microbiology Past 72 Hours 10/17/20 16:24 Mucosa - Nose SARS-CoV-2 Antigen (Rapid) - Final Laboratory Results 10/17/20 20:34: Troponin I < 0.015 10/18/20 05:12: WBC 4.7, RBC 4.55 L, Hgb 13.5, Hct 40.5, MCV 89.0, MCH 29.7, MCHC 33.3, RDW Std Deviation 41.7, RDW Coeff of Manny 12.8, Plt Count 153, MPV 9.8, Immature Gran % (Auto) 0.200, Neut % (Auto) 69.7, Lymph % (Auto) 14.1 L, [place] % (Auto) 12.2 H, Eos % (Auto) 3.4, Baso % (Auto) 0.4, Absolute Neuts (auto) 3.3, Absolute Lymphs (auto) 0.66 L, Nucleated RBC % 0 10/18/20 05:12: Sodium 138, Potassium 4.3, Chloride 109 H, Carbon Dioxide 23.0, Anion Gap 6, BUN 20 H, Creatinine 1.26, Estim Creat Clear Calc 58.10, Est GFR (MDRD) Af Amer 73, Est GFR (MDRD) Non-Af 60, BUN/Creatinine Ratio 15.9, Glucose 99, Calcium 8.3 L, Phosphorus 3.3, Magnesium 2.1, Total Bilirubin 1.10 H, AST 27, ALT 34, Alkaline Phosphatase 81, Total Protein 6.4, Albumin 3.3, Globulin 3.1, Albumin/Globulin Ratio 1.1, Triglycerides 102, Cholesterol 130, LDL Cholesterol 68, VLDL Cholesterol 20, HDL Cholesterol 42 Current Medications Acetaminophen (Acetaminophen 325 Mg Tablet) 650 mg PO Q4H PRN PRN PRN Reason: Headache/Temp>99.6F Acetaminophen (Acetaminophen 650 Mg Suppository) 650 mg RECTAL Q4H PRN PRN PRN Reason: Headache/Temp>99F Acetaminophen (Acetaminophen 650 Mg/20 Ml Udc) 650 mg NG Q4H PRN PRN PRN Reason: Headache/Temp>99F Al Hydroxide/Mg Hydroxide (Mag Hydrox/Al Hydrox/Simeth 30 Ml Udc) 30 ml PO Q6H PRN PRN PRN Reason: Gastric Burning Albuterol Sulfate (Albuterol 2.5 Mg/3 Ml Vial.Neb.) 2.5 mg INHALATION Q2H PRN PRN PRN Reason: SOB/Wheezing Aspirin (Aspirin 81 Mg Tab.Chew) 81 mg PO DAILY@0800 [facility] Last Admin: 10/18/20 10:27 Dose: 81 mg Documented by: Atorvastatin Calcium (Atorvastatin Calcium 80 Mg Tablet) 80 mg PO QHS [facility] Last Admin: 10/17/20 21:23 Dose: 80 mg Documented by: Cholecalciferol (Cholecalciferol (Vit D3) 1,000 Unit (25mcg)) 1,000 unit PO DAILY [facility] Last Admin: 10/18/20 10:27 Dose: 1,000 unit Documented by: Docusate Sodium (Docusate Sodium 100 Mg Capsule) 100 mg PO BID PRN PRN PRN Reason: Constipation Ezetimibe (Ezetimibe 10 Mg Tablet) 10 mg PO [facility] Enoxaparin Sodium (Enoxaparin 40 Mg/0.4 Ml Syringe) 40 mg SC DAILY [facility] Last Admin: 10/18/20 10:27 Dose: 40 mg Documented by: Famotidine (Famotidine 20 Mg Tablet) 20 mg PO BID [facility] Last Admin: 10/18/20 11:29 Dose: 20 mg Documented by: Hydralazine HCl (Hydralazine 20 Mg/Ml Vial) 5 mg IV Q30M PRN PRN Reason: to maintain BP goals Labetalol HCl (Labetalol (Prefilled) 20 Mg/4 Ml) 10 - 20 mg IV Q10M PRN PRN PRN Reason: to Maintain BP Goals Losartan Potassium (Losartan Potassium 100 Mg Tablet) 100 mg PO DAILY [facility] Last Admin: 10/18/20 10:27 Dose: 100 mg Documented by: Melatonin (Melatonin 3 Mg Tablet) 3 mg PO QHS PRN PRN PRN Reason: INSOMNIA Metoprolol Succinate (Metoprolol(Xl)Succ 100 Mg Tablet) 100 mg PO DAILY [facility] Last Admin: 10/18/20 10:27 Dose: 100 mg Documented by: Ondansetron HCl (Ondansetron 4 Mg/2 Ml Vial) 4 mg IV Q8H PRN PRN PRN Reason: NAUSEA/VOMITING Discharge Diet: Low fat/ Low Cholesterol Discharge Activity: Return to Normal Activity Weight Bearing Status: Weight bearing as tolerated Call your doctor if you observe: Numbness or Tingling, Dizziness Home Medications: Medications to take at Discharge Aspirin [Aspirin, Baby] 81 mg PO DAILY@0800 10/17/20 Cholecalciferol (VIT D3) [Vitamin D3] 1,000 unit PO DAILY 10/17/20 Cyanocobalamin (Vitamin B-12) [Vitamin B-12] 1,000 mcg PO DAILY 10/17/20 Ezetimibe [Zetia] 10 mg PO WE 10/17/20 Losartan Potassium [Cozaar] 100 mg PO DAILY 10/17/20 Metoprolol(XL)Succ [Toprol Xl (Beta Javid)] 100 mg PO DAILY 10/17/20 Atorvastatin Calcium 80 mg PO QHS #30 tab 10/18/20 Clopidogrel Bisulfate [Plavix] 75 mg PO DAILY #21 tab 10/18/20 Following Prescriptions Were Given to Patient: Atorvastatin Calcium 80 mg PO QHS #30 tab Prescription Printed Clopidogrel Bisulfate [Plavix] 75 mg PO DAILY #21 tab Prescription Printed Other Amb Orders: 30-Day Event Recorder [[facility]] Location: None Selected Primary Care Physician: AFTAB CRUZ [Other] Please follow up with your Primary Care Physician in: 2-3 weeks Patient Instructions: ED TIA: Transient Ischemic Attack Disposition: Home Minutes spent on discharge:: 50 Patient Condition:: Stable Medical Necessity - Tobacco Use Smoking Status: Former smoker Meaningful Use Info Meaningful Use Diagnoses (Choose all that apply): None applicable Inpatient E&M: 01121 Disch Hosp
== END 2020-10-18 18:46 | disposition home or self-care (01) | DRG 69 ==
LOC: ED 15:40 → PCU 19:21
PROVIDERS: Family Medicine; Admitting Provider Internal Medicine; Emergency Provider Emergency Medicine; Referring Provider Internal Medicine; Visit Provider Student in an Organized Health Care Education/Training Program
DX: G45.9 Transient cerebral ischemic attack, unspecified (principal); N17.9 Acute kidney failure, unspecified; I11.9 Hypertensive heart disease without heart failure; E78.5 Hyperlipidemia, unspecified; E55.9 Vitamin D deficiency, unspecified; E66.9 Obesity, unspecified; Z68.33 Body mass index [BMI] 33.0-33.9, adult; E78.00 Pure hypercholesterolemia, unspecified; Z79.82 Long term (current) use of aspirin; Z79.899 Other long term (current) drug therapy; Z87.891 Personal history of nicotine dependence
CPT/HCPCS: 36415; 70450; 70496; 70498; 70553; 71045; 80048; 80053; 80061; 83735; 84100; 84484; 85025; 85610; 85730; 87426; 92523; 92610; 93005; 93306; 94762; 97161; 97166; 97802; 99251; 99285; A9575; J7030; Q9957; Q9967; A4216; C8929; G0463